=== PATIENT | male | born 1970 | race Two or more races ===

== ENCOUNTER 2016-10-07 07:18 | Emergency (ER) | payer OTHER ==
[2016-10-07 07:30] VITALS: BP 119/77; PULSE 92; RESP 16; TEMP 98.2; O2SAT 94
--- NOTE | 2016-10-07 07:45 | UCPHY ---
H & P Patient Type: New Chief Complaint Nursing Narrative: fever, headache, body aches x 5 days Time Seen by Provider: 10/07/16 07:35 HPI/ROS: CHIEF COMPLAINT: Headache, fever HISTORY OF PRESENT ILLNESS: Patient is a 46-year-old otherwise healthy man who comes to the Urgent Care complaining of a headache and fever for the last 5 days. He has also had body aches. No sore throat. No runny nose. No nausea vomiting. No GI symptoms. Respiratory symptoms. REVIEW OF SYSTEMS: Constitutional: See HPI EENTM: denies: blurred vision, double vision, nose congestion Respiratory: denies: cough, shortness of breath Cardiac: denies: chest pain, irregular heart rate, lightheadedness, palpitations Gastrointestinal/Abdominal: denies: abdominal pain, diarrhea, nausea, vomiting, blood streaked stools Genitourinary: denies: dysuria, frequency, hematuria, pain Musculoskeletal: denies: joint pain, muscle pain Skin: denies: lesions, rash, jaundice, bruising Neurological: denies: headache, numbness, paresthesia, tingling, dizziness, weakness Hematologic/Lymphatic: denies: blood clots, easy bleeding, easy bruising Immunologic/allergic: denies: HIV/AIDS, transplant EXAM: GENERAL: Well-appearing, well-nourished and in no acute distress. HEAD: Atraumatic, normocephalic. EYES: Pupils equal round and reactive to light, extraocular movements intact, sclera anicteric, conjunctiva are normal. ENT: TMs normal, nares patent, oropharynx clear without exudates. Moist mucous membranes. NECK: Normal range of motion, supple without lymphadenopathy or JVD. LUNGS: Breath sounds clear to auscultation bilaterally and equal. No wheezes rales or rhonchi. HEART: Regular rate and rhythm without murmurs, rubs or gallops. ABDOMEN: Soft, nontender, normoactive bowel sounds. No guarding, no rebound. No masses appreciated. BACK: No CVA tenderness, no spinal tenderness, step-offs or deformities EXTREMITIES: Normal range of motion, no pitting or edema. No clubbing or cyanosis. NEUROLOGICAL: Cranial nerves II through XII grossly intact. Normal speech, normal gait. 5/5 strength, normal movement in all extremities, normal sensation PSYCH: Normal mood, normal affect. SKIN: Warm, dry, normal turgor, no visible rashes or lesions. Source: Patient Exam Limitations: No limitations - Medical/Surgical History Hx Asthma: No Hx Chronic Respiratory Disease: No Hx Diabetes: No Hx Cardiac Disease: No Hx Renal Disease: No Hx Cirrhosis: No Hx Alcoholism: No Other PMH: denies - Family History Significant Family History: No pertinent family hx - Social History Smoking Status: Never smoked Alcohol Use: Sober Drug Use: None Constitutional: Initial Vital Signs Temperature (C) 36.8 C 10/07/16 07:29 Heart Rate 92 10/07/16 07:29 Respiratory Rate 16 10/07/16 07:29 Blood Pressure 119/77 10/07/16 07:29 O2 Sat (%) 94 10/07/16 07:29 O2 Delivery Mode Room Air Allergies/Adverse Reactions: No Known Allergies Allergy (Unverified 10/07/16 07:29) Home Medications: Medication Instructions Recorded Azithromycin [Zithromax] 250 mg PO DAILY #6 tab 10/07/16 Medical Decision Making - Diagnostics Imaging: Results: CT scan of the head was obtained. The results of the study are sphenoid sinusitis. The study was read by Dr. Richard Acosta. I viewed the images myself on the PACS system. ED Course/Re-evaluation: Patient's flu swab is negative in his CT head is negative except for sphenoid sinusitis. This is consistent with his symptoms. I will start him on azithromycin. He is pleased with this outcome. He declines any further workup or testing this time. We discussed indications for returning. Differential Diagnosis: Partial list of the Differential diagnosis considered include but were not limited to; sinusitis, influenza and although unlikely based on the history and physical exam, I also considered upper respiratory tract infection, meningitis, sepsis, tumor. I discussed these differential diagnoses and the plan with the patient as well as the usual and expected course. The patient understands that the diagnosis is provisional and that in medicine we are not always correct and that further workup is often warranted. Usual and customary warnings were given. All of the patient's questions were answered. The patient was instructed to return to the emergency department should the symptoms at all worsen or return, otherwise to followup with the physician as we discussed. - Data Points Laboratory Results: 10/07/16 07:50 Influenza Typ A,B (DFA) NEGATIVE FOR FLU (NEGATIVE) Departure - Departure Disposition: Home, Routine, Self-Care Clinical Impression: Sinusitis Qualifiers: Sinusitis location: sphenoidal Chronicity: acute Recurrence: non-recurrent Qualified Code(s): J01.30 - Acute sphenoidal sinusitis, unspecified Condition: Fair Instructions: Sinusitis (ED) Referrals: Lynette Sharif MD [Medical Doctor] - As per Instructions Prescriptions: Azithromycin [Zithromax] 250 mg PO DAILY #6 tab - PQRS PQRS Measurement: Not applicable
== END 2016-10-07 08:26 | disposition home or self-care (01) ==
LOC: CED 07:18
DX: J01.30 Acute sphenoidal sinusitis, unspecified (principal)
CPT/HCPCS: 70450-PO; 87400-PO; 99202-PO; G0463-PO

== ENCOUNTER 2016-12-02 14:09 | Emergency (ER) | payer OTHER ==
--- NOTE | 2016-12-02 14:14 | CPEKG ---
Heart Rate: 93 RR Interval: 645 P-R Interval: 128 QRSD Interval: 88 QT Interval: 348 QTC Interval: 433 P [place]: 72 QRS [place]: 79 T Wave [place]: 41 EKG Severity - NORMAL ECG - EKG Impression: SINUS RHYTHM Electronically Signed By: Dina Wheat 02-Dec-2016 15:25:49
[2016-12-02] MEDS ORDERED: ASPIRIN 81 MG CHEWABLE TAB PO ONE (14:25)
[2016-12-02] MEDS ORDERED: IPRATROPIUM/ALBUTEROL 3 ML DEYVIAL IH ONE (14:26)
[2016-12-02 14:27] VITALS: TEMP 98.1
--- NOTE | 2016-12-02 14:27 | EDPHY ---
H & P Stated Complaint: Pt. 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 The tightness occurred across both sides of his chest. It was associated with a feeling of anxiety. There was no nausea or diaphoresis. He has not had previous chest pain. He does note a cough and runny nose for the last 2 days. He is undergoing treatment for strep pharyngitis, with 4 days left on a prescription for amoxicillin. He is not experiencing sore throat or throat tightness. At the time of my evaluation his chest pain has completely resolved. He has no history of hypertension, diabetes, or tobacco abuse. He does not know his cholesterol status. His father of myocardial infarction at age 58. REVIEW OF SYSTEMS: A ten point review of systems was performed and is negative with the exception of the items mentioned in the HPI. Recent diagnosis of strep pharyngitis, amoxicillin. Source: Patient Exam Limitations: No limitations - Medical/Surgical History Hx Asthma: No Hx Chronic Respiratory Disease: No Hx Diabetes: No Hx Cardiac Disease: No Hx Renal Disease: No Hx Cirrhosis: No Hx Alcoholism: No Other PMH: denies - Family History Significant Family History: Heart disease ( Father in his 50s of myocardial infarction) - Social History Smoking Status: Never smoked Alcohol Use: Occasionally Drug Use: None Additional Social History: Works as a developer of mobile apps. - Physical Exam Exam: General Appearance: Alert. Vital signs reviewed. BP 130/80. Eyes: Pupils equal and round, no conjunctival injection, no discharge. Anicteric. ENT, Mouth: Mucous membranes are moist, no oropharyngeal erythema or edema. Neck: No lymphadenopathy, supple. no jugular venous distention. Respiratory: Lungs with expiratory wheezing, slightly rhonchorous. Cardiovascular: Regular rate and rhythm; no murmur, rub, or gallop. Gastrointestinal: Abdomen is soft and nontender, no masses or organomegaly, bowel sounds normal. Skin: Warm and dry, no rashes on exposed skin, normal color. Back: Nontender to palpation over the thoracolumbar spine. No CVAT. Extremities: No lower extremity edema, no calf tenderness or swelling. Neurological: Alert and oriented. Moving all four extremities easily and equally. Psychiatric: Normal affect. Constitutional: Initial Vital Signs Temperature (C) 36.7 C 12/02/16 14:09 Heart Rate 92 12/02/16 14:09 Respiratory Rate 18 12/02/16 14:09 Blood Pressure 130/80 H 12/02/16 14:09 O2 Sat (%) 97 12/02/16 14:09 O2 Delivery Mode Room Air Allergies/Adverse Reactions: No Known Allergies Allergy (Verified 12/02/16 14:18) Home Medications: Medication Instructions Recorded Albuterol [Proventil Inhaler HFA 1 - 2 puffs IH Q4 #1 mdi 12/02/16 (*)] Amoxicillin 12/02/16 Medical Decision Making - Diagnostics EKG Interpretation: Twelve lead EKG interpreted by me in [employer]. Imaging Results: Two view chest xray shows some airways disease, no infiltrate. I have reviewed the radiologist's report. Imaging: I viewed and interpreted images myself ED Course/Re-evaluation: Aspirin given shortly after arrival. Following my evaluation a duoneb was administered--breath sounds with wheezing. On re-exam, lungs clear. No hypoxia. No tachypnea. I do not suspect PE and think ACS unlikely. Normal/negative troponin, normal EKG. Family history of early CAD, no other risk factors. HEART score low--risk of MACE in six weeks less than 2%. It is my impression that this is bronchitis and I am recommending use of albuterol MDI. I considered a ddx of chest pain including but not limited to myocardial ischemia, pulmonary embolus, chest wall pain, pleural inflammation and pulmonary infectious causes. Shortness of breath including but not limited to pulmonary infectious process, COPD, asthma, pulmonary embolus and congestive heart failure. - Data Points Laboratory Results: Laboratory Results 12/02/16 14:15 12/02/16 14:15 Medications Given: Discontinued Medications Albuterol/Ipratropium (Duoneb) 3 ml IH EDNOW ONE Stop: 12/02/16 14:27 Last Admin: 12/02/16 14:32 Dose: 3 ml Aspirin (Aspirin) 324 mg PO EDNOW ONE Stop: 12/02/16 14:26 Last Admin: 12/02/16 14:30 Dose: 324 mg Departure - Departure Disposition: Home, Routine, Self-Care Clinical Impression: Bronchitis Condition: Good Instructions: How to Use a Metered-Dose Inhaler (ED), Acute Bronchitis (ED) Additional Instructions: Use the inhaler four times daily for the next two to three days. Two puffs at a time. Referrals: Lynette Sharif MD [Primary Care Provider] - As per Instructions Prescriptions: Albuterol [Proventil Inhaler HFA (*)] 1 - 2 puffs IH Q4 #1 mdi
[2016-12-02 14:29] LABS: % IMMATURE GRANULYOCYTES 0.4 % (0.0-1.1); ABSOLUTE IMMATURE GRANULOCYTES 0.03 10^3/uL (0.00-0.10); ADD DIFF? NO; ADD MORPH? NO; ADD SCAN? NO; ATYPICAL LYMPHOCYTE FLAG 20 (0-99); FRAGMENT RBC FLAG 0 (0-99); HEMATOCRIT 49.5 % (40.0-51.0); HEMOGLOBIN 17.5 g/dL (13.7-17.5); LEFT SHIFT FLG 0 (0-99); LIPEMIA HEMOLYSIS FLAG 90 (0-99); MEAN CELL HEMOGLOBIN 31.9 pg (27.9-34.1); MEAN CELL HEMOGLOBIN CONCENTR. 35.4 g/dL (32.4-36.7); MEAN CELL VOLUME 90.3 fL (81.5-99.8); PLATELET CLUMPS FLAG 0 (0-99); PLATELET COUNT 318 10^3/uL (150-400); RED BLOOD CELL COUNT 5.48 10^6/uL (4.40-6.38); RED CELL DISTRIBUTION WIDTH 13.1 % (11.5-15.2)
[2016-12-02 14:48] LABS: ANION GAP 17 mEq/L (8-16); CALCIUM 9.6 mg/dL (8.5-10.4); CARBON DIOXIDE 24 mEq/l (22-31); CHLORIDE 103 mEq/L (97-110); GLOMERULAR FILTRATION RATE > 60; GLUCOSE 109 mg/dL (70-100); POTASSIUM 4.1 mEq/L (3.5-5.2); SODIUM 144 mEq/L (134-144)
[2016-12-02 14:59] LABS: TROPONIN I < 0.012 ng/mL (0-0.034)
[2016-12-02 16:12] VITALS: BP 130/76; PULSE 84; RESP 16; O2SAT 96
== END 2016-12-02 15:29 | disposition home or self-care (01) ==
LOC: CED 14:09
DX: J40 Bronchitis, not specified as acute or chronic (principal)
CPT/HCPCS: 71020-PO; 80048-PO; 84484-PO; 85025-PO